=== PATIENT | male | born 1940 | race Asian ===

== ENCOUNTER 2019-04-26 20:37 | Emergency (ER) | payer MEDICARE ==
[~2019-04-26] VITALS: Ht 160 cm; Wt 65.8 kg
[2019-04-26 20:40] VITALS: BP 186/80
--- NOTE | 2019-04-26 20:40 | NUR ---
ER Nurse Note: Pt brought in by ambulance c/o "feeling weak and tired". Per pt, pt stated he was on his way home via foot. Pt got tired and weak. Pt a&ox4, VSS, RA, no signs of distress. Pt denies pain, n/v, fever, chills, skin intact. Water provided. [employer], ERMD at pt side. All safety measures met; will conitnue to [facility].
--- NOTE | 2019-04-26 21:14 | Emergency Room Report ---
History of Present Illness General Chief Complaint: Generalized Weakness Source: Patient, EMS Present Illness HPI There is a 78-year-old male with a history of high blood pressure. He presents with chief complaint of generalized weakness. He said he took the bus and fell asleep on it. He said he has not slept for the last 2 days because he been walking around to control his blood pressure. He fell asleep on the bus and the business development coordinator dropped him off at [facility]. He thought I was going to take him to [place]. coach driver called 911 because patient was confused and appeared to be weak. Patient denies any complaint. He said he lives in [place] with his . His phone so he could not call them. He denies any other complaint. Police is here and said that there is no missing person report. But they are willing to take him home. Patient denies any chest pain. No stroke symptoms. He is walking around without any problem. Allergies: Coded Allergies: No Known Allergies (Unverified , 04/26/19) Patient History Past Medical History: see triage record, old chart reviewed, HTN Past Surgical History: none Pertinent Family History: none Social History: Denies: smoking Immunizations: other Reviewed Nursing Documentation: PMH: Agreed; PSxH: Agreed Nursing Documentation-PMH Hx Hypertension: Yes Review of Systems Constitutional: Reports: weakness Eye: Denies: eye pain, blurred vision ENT: Denies: ear pain, nose congestion, throat swelling Respiratory: Denies: cough, shortness of breath Cardiovascular: Denies: chest pain, palpitations Gastrointestinal: Denies: abdominal pain, diarrhea, nausea, vomiting Musculoskeletal: Denies: back pain, joint pain Skin: Denies: rash Neurological: Denies: headache, numbness Endocrine: Denies: increased thirst, increased urine Hematologic/Lymphatic: Denies: easy bruising All Other Systems: negative except mentioned in HPI Physical Exam Vital Signs Date Time Temp Pulse Resp B/P (MAP) Pulse Ox O2 Delivery O2 Flow Rate FiO2 04/26/19 20:27 98.8 96 18 186/80 (115) 98 Room Air Vitals with high blood pressure. Repeat blood pressure is 145/80 Sp02 EP Interpretation: reviewed, normal General Appearance: well appearing, no apparent distress, alert Head: normocephalic, atraumatic Eyes: bilateral eye PERRL, bilateral eye EOMI ENT: hearing grossly normal, normal pharynx Neck: full range of motion, supple, no meningismus Respiratory: chest non-tender, lungs clear, normal breath sounds Cardiovascular #1: regular rate, rhythm, no murmur Gastrointestinal: normal bowel sounds, non tender, no mass, no organomegaly, no bruit, non-distended Musculoskeletal: back normal, normal range of motion, gait/station normal Psychiatric: mood/affect normal Medical Decision Making Diagnostic Impression: Primary Impression: Episode of generalized weakness ER Course Patient with generalized weakness. No evidence of any injury. He does look disheveled and has on dirty shoes. I suspect that he has some underlying dementia. According to police they do not have any missing person report but their system is new and they can look in [place]. Please officers are willing to take him home. His address matched up with his ID. I see no evidence of CVA or TIA. No evidence of any injury. Last Vital Signs Date Time Temp Pulse Resp B/P (MAP) Pulse Ox O2 Delivery O2 Flow Rate FiO2 04/26/19 20:27 98.8 96 18 186/80 (115) 98 Room Air Status: improved Disposition: HOME, SELF-CARE Condition: Stable Patient Instructions: Weakness Additional Instructions: Take your medication. Follow-up with your doctor in 7 days. Return if symptoms worsen. Antony Richard MD Apr 26, 2019 21:14
[2019-04-26 22:00] VITALS: BP 146/76
--- NOTE | 2019-04-26 22:00 | NUR ---
ER Nurse Note: Pt seen, treated, cleared to be discharged per ERMD. Discharge instructions given with repeat verbalization by pt. Encouraged pt follow up with primary care doctor within one week. Pt is aox4, on room air, with stable vital signs, no signs of distress. ID band removed. Pt is able to ambulate with steady gait. pt took all belongings; pants provided. Pt left with [employer] to be taken home.
== END 2019-04-26 22:00 | disposition home or self-care (01) ==
LOC: EDBD 20:37 → EMR 21:05
DX: R53.1 Weakness (principal); I10 Essential (primary) hypertension
CPT/HCPCS: 99283